=== PATIENT | female | born 1930 | race Caucasian/White ===

== ENCOUNTER 2016-09-04 07:31 | Outpatient (CLI) | payer BC, MEDICARE, OTHER | END 2016-09-04 07:32 | disposition home or self-care (01) | DX: R41.81 Age-related cognitive decline (principal) ==

== ENCOUNTER 2016-09-13 15:17 | Outpatient (CLI) | payer BC | END 2016-09-13 15:18 | disposition home or self-care (01) | DX: R41.81 Age-related cognitive decline (principal) ==

== ENCOUNTER 2017-11-07 09:12 | Outpatient (CLI) | payer BC | END 2017-11-07 09:13 | disposition critical access hospital (66) | LOC: EMS 09:12 | PROVIDERS: ATTEND Surgery | DX: R55 Syncope and collapse (principal); R41.0 Disorientation, unspecified; R09.89 Other specified symptoms and signs involving the circulatory and respiratory systems | CPT/HCPCS: A0425; A0427 ==

== ENCOUNTER 2017-11-07 09:29 | Emergency (ER) | payer BC ==
[2017-11-07] MEDS ORDERED: SODIUM CHLORIDE 0.9% 1,000 ML IV ONE (09:35)
--- NOTE | 2017-11-07 09:39 | ED Physician Documentation ---
PD HPI SYNCOPE - Stated complaint Stated Complaint: SYNCOPE - History obtained from History obtained from: EMS, Caregiver - History of Present Illness Witnessed: Witnessed (patient seen to have syncopal episode at [facility], passed out and was poorly responsive. Reportedly they tried to call family members but did not get in touch readily so called EMS. Patient found by medics to be having trouble breathing, hypotensive, and poorly responsive. Monitor/ECG showing likely inferior STEMI. 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 EMS brought patient to the hospital. IV enroute and facemask for oxygen.) Timing - onset: How many hours ago (1/2) Preceding symptoms: Unknown Associated symptoms: Chest pain. No: Seizure Contributing factors: No: Recent med change Injury occurred: No: Fell Similar symptoms before: Has not had sx before Recently seen: Not recently seen Review of Systems Unable to obtain: Unresponsive Respiratory: denies: Cough GI: denies: Vomiting, Diarrhea PD PAST MEDICAL HISTORY - Past Medical History Cardiovascular: None Respiratory: None Neuro: Dementia Endocrine/Autoimmune: None - Present Medications Home Medications: Ambulatory Orders Medication Instructions Recorded Confirmed Buspirone HCl 7.5 mg PO BID 11/07/17 Lorazepam [Ativan] 11/07/17 - Allergies Allergies/Adverse Reactions: Allergies Allergy/AdvReac Type Severity Reaction Status Date / Time No Known Drug Allergies Allergy Verified 11/07/17 09:46 - Living Situation Living Situation: reports: Alone Living Arrangement: reports: long-term - Social History Does the pt smoke?: No Does the pt drink ETOH?: No Does the pt have substance abuse?: No - Family History Family history: reports: Non contributory PD ED PE NORMAL - Vitals Vital signs reviewed: Yes (hypotensive, pale, with thready faint pulses and bradycardia about 50. ) - General General: Other (Unresponsive to verbal and just minimal to tactile. Minimal gag reflex on arrival. ) - Neck Neck: No JVD, No bruit - Cardiac Cardiac: No murmur. No: RRR (bradycardic) - Respiratory Respiratory: No: Clear bilaterally (central congestion, with sonorous breathing) - Abdomen Abdomen: Non distended - Derm Derm: No: Normal color (pale) - Extremities Extremities: No edema - Neuro Neuro: No: Alert and oriented X 3 Results - Vitals Vitals: Vital Signs - 24 hr 04/26/18 09:37 Temperature 35.1 C L Respiratory 14 Rate Blood Pressure 59/45 L O2 Saturation 81 L Oxygen O2 Source Nasal cannula - EKG (time done) 09:46 Rate: Rate (enter#) (17) Rhythm: Sinus bradycardia [place]: Normal Ischemia: ST elevation c/w ischemia (inferior leads) PD MEDICAL DECISION MAKING - ED course Complexity details: reviewed results (On initial presentation, I thought of ordering some tests until we could talk with family members about limits of care. However she is very quickly was showing decompensation and needed to either have resuscitation or be allowed to naturally. 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 Catheter and the nurse called her daughter whom she reached right away and confirmed the DNR status.), considered differential ( appears acute Inferior [place] with shock and pump failure. 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 She appears comfortable/unresponsive, and was sure to maintain comfort if needed. Allowed to natural in ED. ), d/w family Departure - Departure Disposition: 20 Clinical Impression: Acute ST elevation myocardial infarction (STEMI) of inferior wall, Cardiogenic shock Altered mental status Qualifiers: Altered mental status type: coma Coma depth: unspecified coma depth Qualified Code(s): R40.20 - Unspecified coma Condition: Critical Record reviewed to determine appropriate education?: Yes Discharge Date/Time: 11/07/17 12:28
[2017-11-07 09:46] VITALS: BP 59/45
== END 2017-11-07 12:28 | disposition expired ==
LOC: EDUNIT# → ED 09:29
DX: I21.19 ST elevation (STEMI) myocardial infarction involving other coronary artery of inferior wall (principal); R57.0 Cardiogenic shock; R40.20 Unspecified coma; F03.90 Unspecified dementia, unspecified severity, without behavioral disturbance, psychotic disturbance, mood disturbance, and anxiety; Z66 Do not resuscitate
CPT/HCPCS: 80053; 83605; 83690; 84484; 85025; 93005; 99284; 99285